=== PATIENT | female | born 1985 | race African-American/Black ===

== ENCOUNTER 2016-07-13 06:01 | Day surgery (SDC) | payer OTHER ==
[~2016-07-13] VITALS: Ht 170.2 cm; Wt 79.8 kg
[2016-07-13 06:52] LABS: BASOPHILS % 0.6 % (0.0-2.0); EOSINOPHILS % 1.9 % (0.0-5.0); HEMATOCRIT. 39.4 % (36.0-48.0); HEMOGLOBIN. 13.4 g/dL (12.0-16.0); LYMPHOCYTES % 28.4 % (20.0-50.0); MEAN CORPUSCULAR HEMOGLOBIN 28.8 pg (28.0-32.0); MEAN CORPUSCULAR VOLUME 84.5 fL (81.0-99.0); MEAN PLATELET VOLUME 9.1 fl (7.4-10.4); MONOCYTES % 7.3 % (2.0-8.0); NEUTROPHILS % 61.8 % (40.0-76.0); PLATELET 227 x1000/uL (130-400); RED BLOOD CELL COUNT 4.66 mill/uL (4.2-5.4); RED CELL DISTRIBUTION WIDTH 13.7 % (11.6-14.6); WHITE BLOOD COUNT 6.6 x1000/uL (4.5-11.0)
[2016-07-13 07:04] LABS: PARTIAL THROMBOPLASTIN TIME 32.2 sec (24.0-34.0); PROTHROMBIN TIME 10.5 sec
[2016-07-13 07:08] LABS: CLARITY URINE CLEAR (CLEAR); COLOR URINE YELLOW (YELLOW); GLUCOSE URINE NEGATIVE (NEGATIVE); KETONES URINE NEGATIVE (NEGATIVE); LEUKOCYTE ESTERASE URINE NEGATIVE (NEGATIVE); NITRITE URINE NEGATIVE (NEGATIVE); OCCULT BLOOD URINE NEGATIVE (NEGATIVE); PH URINE 5.5 (4.5-8.0); PROTEIN URINE NEGATIVE (NEGATIVE); SPECIFIC GRAVITY URINE 1.019 (1.005-1.030); UROBILINOGEN URINE 0.2 E.U./dL (0.2-1.0)
[2016-07-13 07:10] LABS: UCG SCREEN NEGATIVE
[2016-07-13] MEDS ORDERED: VASOPRESSIN 20 UNIT/ML 1ML ONE ×2 (07:11→07:12)
[2016-07-13] MEDS ORDERED: METHYLENE BLUE 1% VIAL 1ML ONE (07:13)
[2016-07-13] MEDS ORDERED: LACTATED RINGERS 1,000 ML IV SCH (07:20)
[2016-07-13] MEDS ORDERED: HYDROMORPHONE HCL/PF 2MG/ML CPJ IV PRN (07:30)
[2016-07-13] MEDS ORDERED: ONDANSETRON HCL 4MG/2ML VIAL IV PRN (07:30)
[2016-07-13] MEDS ORDERED: FENTANYL CITRATE/PF 50MCG/ML 2ML VIAL IV PRN (07:30)
[2016-07-13] MEDS ORDERED: LIDOCAINE HCL 1% 20ML VIAL (Pyxis) INJ ONE (07:35)
[2016-07-13] MEDS ORDERED: PROPOFOL 200MG/20ML VIAL IV ONE ×2 (07:35→09:26)
[2016-07-13] MEDS ORDERED: SUCCINYLCHOLINE CHLORIDE 200MG/10ML VIAL IV ONE (07:35)
[2016-07-13] MEDS ORDERED: MIDAZOLAM HCL 2 MG/2 ML VIAL ONE (07:36)
[2016-07-13] MEDS ORDERED: FENTANYL CITRATE/PF 50MCG/ML 2ML VIAL ONE ×2 (07:36→08:46)
[2016-07-13] MEDS ORDERED: ONDANSETRON HCL 4MG/2ML VIAL ONE (07:39)
[2016-07-13] MEDS ORDERED: HYDROCODONE/ACETAMINOPHEN 5/325MG TABLET PO PRN (08:30)
[2016-07-13] MEDS ORDERED: CEFAZOLIN SODIUM 1000MG/VIAL ONE (08:41)
[2016-07-13] MEDS ORDERED: GLYCOPYRROLATE 0.2 MG/ML 2ML VIAL ONE (08:58)
[2016-07-13] MEDS ORDERED: NEOSTIGMINE METHYLSULFATE 1MG/ML 10 ML VIAL ONE (08:58)
[2016-07-13] MEDS ORDERED: HYDROMORPHONE HCL/PF 2MG/ML (OR) ONE (09:00)
[2016-07-13] MEDS ORDERED: SKIN ADHESIVE 0.7 GM EA TOP ONE (09:36)
== END 2016-07-13 12:10 | disposition home or self-care (01) ==
LOC: OR 06:01
PROVIDERS: ATTEND Obstetrics & Gynecology Obstetrics
DX: D25.0 Submucous leiomyoma of uterus (principal); G89.29 Other chronic pain; N83.292 Other ovarian cyst, left side
CPT/HCPCS: 36415; 58559; 81003; 81025; 85025; 85610; 85730; 88305; G0168; J0330; J0690; J1170; J2250; J2405; J2710; J3010; J3490; J7120; Q9968; J2704